=== PATIENT | female | born 1990 | race Caucasian/White ===

== ENCOUNTER → 2018-09-24 | Outpatient (REF) | payer OTHER, MEDICAID ==
[2018-09-24 18:39] LABS: HEMATOCRIT 37.9 % (36.0-47.0); HEMOGLOBIN 12.8 g/dl (12.0-15.5); MEAN CORPUSCULAR HEMOGLOBIN 28.8 pg (27.0-33.0); MEAN CORPUSCULAR HGB CONC 33.8 g/dl (32.0-36.5); MEAN CORPUSCULAR VOLUME 85.2 fl (80.0-96.0); PLATELET COUNT, AUTOMATED 208 10^3/uL (150-450); RED BLOOD COUNT 4.45 10^6/uL (4.00-5.40); WHITE BLOOD COUNT 7.3 10^3/uL (4.0-10.0)
[2018-09-24 19:19] LABS: HCG, SERUM QUANTITATIVE 43674 MIU/ML
[2018-09-25 10:17] LABS: RUBELLA IgG QUALITATIVE EQUIVOCAL (IMMUNE)
[2018-09-25 10:18] LABS: HBsAg Prenatal NEGATIVE (NEGATIVE)
[2018-09-25 10:45] LABS: HEPATITIS C VIRUS ABY INDEX 0.1 INDEX (<0.8)
[2018-09-25 10:46] LABS: HIV 1&2 SCREEN CENTAUR NEGATIVE (NEGATIVE)
== END ==
LOC: M LAB REF 17:12
DX: O36.80X0 Pregnancy with inconclusive fetal viability, not applicable or unspecified (principal); Z3A.00 Weeks of gestation of pregnancy not specified
CPT/HCPCS: 86762

== ENCOUNTER → 2018-10-24 | Outpatient (REF) | payer OTHER, MEDICAID | LOC: M LAB REF 13:35 | DX: Z36.89 Encounter for other specified antenatal screening (principal) | CPT/HCPCS: 87086 ==

== ENCOUNTER 2019-04-21 20:21 | Inpatient (IN) | payer MEDICAID, OTHER ==
[~2019-04-21 20:21] MED LIST: IBUP-1022 PO; TYLE500T78 PO
[2019-04-21] MEDS ORDERED: LACTATED RINGER'S 1000 ML IV STA (20:37)
[2019-04-21] MEDS ORDERED: PENICILLIN G POTASSIUM IV 5 MU in D5W MINI-BAG PLUS 100 ML IV STA (20:37)
[2019-04-21] MEDS ORDERED: BUTORPHANOL 2 MG/ML INJ (J0595) IV ONE (21:00)
[2019-04-21] MEDS ORDERED: PROMETHAZINE INJ 25 MG/ML VIAL (J2550) IM ONE (21:00)
[2019-04-21 21:06] LABS: HEMATOCRIT 28.6 % (36.0-47.0); HEMOGLOBIN 9.4 g/dl (12.0-15.5); MEAN CORPUSCULAR HEMOGLOBIN 25.9 pg (27.0-33.0); MEAN CORPUSCULAR HGB CONC 32.9 g/dl (32.0-36.5); MEAN CORPUSCULAR VOLUME 78.8 fl (80.0-96.0); PLATELET COUNT, AUTOMATED 164 10^3/uL (150-450); RED BLOOD COUNT 3.63 10^6/uL (4.00-5.40); WHITE BLOOD COUNT 11.6 10^3/uL (4.0-10.0)
[2019-04-21] MEDS ORDERED: OXYTOCIN DRIP 30 UNITS in APPROPRIATE DILUENT 1 EA IV SCH (22:02)
--- NOTE | 2019-04-21 22:12 | HPE ---
DATE OF ADMISSION: 04/21/2019 HISTORY OF THE PRESENT ILLNESS: The patient is a 29-year-old female who is a 5, para 3-1-0-4 at 39 weeks and 1 day gestation with an estimated date of delivery ([facility]) of 04/27/2019 based off of a first trimester ultrasound and consistent with her last menstrual period. The patient initiated care in her first trimester with [facility]. Her has been complicated by lack of care as she has not been seen since she was 17 weeks . PAST MEDICAL HISTORY: Varicella as a child. SURGICAL HISTORY: No prior procedures. FAMILY HISTORY: Stroke and a blood clot. SOCIAL HISTORY: Patient is . She denies being a smoker. She denies alcohol abuse or use during her or prior to . She denies a history of drug abuse or use during or prior to . She reports no history of sexually transmitted infections. ALLERGIES: No known drug allergies. CURRENT MEDICATIONS: No current medications. PAST PREGNANCIES: In October 2010 at 36 weeks and 6 days, the patient delivered a live male via vaginal delivery. He weighed 6 pounds 15 ounces. In August 2013 at 40 weeks, she delivered a male via vaginal delivery. He weighed 7 pounds 2 ounces. July 2015 at 40 weeks gestation, she delivered a male, spontaneous vaginal delivery. He weighed 7 pounds 1 ounce. In June 2016, at 40 weeks, she delivered a female via spontaneous vaginal delivery. She weighed 6 pounds 13 ounces. LABS: The patient is B+. Her hemoglobin and hematocrit initially in her first trimester was 12.8 and 37.9 with platelets of 208. She is rubella equivocal. Her VDRL is nonreactive. She does not have a urinary tract infection (UTI). HIV is negative. Hepatitis B surface antigen is negative. Hepatitis C is negative. Gonorrhea and chlamydia are both negative. She did not do a 1-hour glucose test nor a GBS. heart rate is 130 with moderate variability and positive accelerations with occasional variable decelerations with contractions. Contractions are every 2 to 4 minutes. Vital Signs: Blood pressure 129/77, heart rate is 80, temperature is 97.9, and respiratory rate is 18. Vaginal Exam: 5 cm, 80% effaced, -2 station with a moderate amount of bloody show. Cervix is soft, in mid position. Bedside sonogram done for presentation and fetus is cephalic presentation. PHYSICAL ASSESSMENT: General: Alert and oriented times three. Respiratory: Regular rate in between contractions and no use of accessory muscles. Abdomen: Gravid and nontender to touch. Extremities: No edema. No clonus. ASSESSMENT: Intrauterine at 39.1 weeks gestation, active labor, category 2 heart rate tracing, GBS unknown. PLAN: Admit patient to labor and delivery. Saline lock and labs per unit protocol. Out of bed ad renny. Clear liquid diet. GBS prophylaxis due to unknown GBS to be started. Anticipate cervical change and spontaneous vaginal delivery.
[2019-04-21] MEDS ORDERED: ANUSOL HC CREAM 30GM TOP PRN (22:15)
[2019-04-21] MEDS ORDERED: DOCUSATE SODIUM 100 MG CAP PO PRN (22:15)
[2019-04-21] MEDS ORDERED: ACETAMINOPHEN 500 MG TAB PO PRN (22:15)
[2019-04-21] MEDS ORDERED: METHYLERGONOVINE MALEATE 0.2 MG TAB PO PRN (22:15)
[2019-04-21] MEDS ORDERED: IBUPROFEN 600 MG TAB PO PRN (22:15)
[2019-04-21] MEDS ORDERED: medroxyPROGESTERone ACET IM SUSP 150 MG/ML VIAL (J1050) IM ONE (22:15)
[2019-04-21] MEDS ORDERED: DIBUCAINE 1% OINTMENT 30GM TOP PRN (22:15)
[2019-04-21] MEDS ORDERED: ACETAMINOPHEN TAB 650MG DOSE (2X325MG) PO PRN (22:15)
[2019-04-21] MEDS ORDERED: MEASLES,MUMPS,RUBELLA VACCINE INJ (MMR-II) (90707) SC SCH (22:15)
[2019-04-21] MEDS ORDERED: RHOGAM 300 MCG (1500 IU) INJ (J2790) IM SCH (22:15)
--- NOTE | 2019-04-21 22:20 | DN ---
DATE: 04/21/2019 DELIVERY DATE AND TIME: 04/21/2019 at 2124 hours. STATUS: Delivered. Spontaneous vaginal delivery. PROVIDER: Alana Varela CNM, WHNP ANESTHESIA: None. ESTIMATED BLOOD LOSS: 250 mL. FINDINGS: Male, 7 pounds 9 ounces, 3440 grams, scores 9/9, cord around body, lack of care. Patient is a 29-year-old female who is now a 5, para 4-1-0-5 at 39 weeks 1 day gestation who presented to labor and delivery in active labor. She progressed to fully dilated at 2122 hours and pushed to a living male in the right occiput anterior (NANO) position with restitution to right occiput transverse (ROT) at 2124 hours. The anterior shoulder delivered with ease and the corpus immediately followed. The baby was placed on the maternal abdomen, active and crying. The cord was clamped times two after 2 minutes and cut by the patient's mother. A three-vessel cord was noted. The placenta delivered spontaneously and intact at 2128 hours. Uterine hemostasis was achieved via rapid infusion of IV Pitocin and fundal massage. The perineum, vagina, and cervix were inspected and found to be intact. Both mom and baby are in stable condition. All counts of instruments and sponges are correct. Mom plans to breastfeed her , and she plans on naming him Edward.
[2019-04-21 23:40] VITALS: BP 132/63
[2019-04-22] MEDS ORDERED: PENICILLIN G POTASSIUM IV 2.5 MU in APPROPRIATE DILUENT 1 EA IV SCH (00:45)
[2019-04-22 06:00] VITALS: BP 124/66
[2019-04-22] MEDS: PRENATAL VITAMINS CHEWABLE TABLET PO SCH (09:27)
[2019-04-22] MEDS: IBUPROFEN 800 MG TAB PO PRN ×2 (09:28→17:14)
[2019-04-22 18:00] VITALS: BP 116/77
[2019-04-23 06:00] VITALS: BP 123/68
--- NOTE | 2019-04-23 07:48 | NUR ---
Day 2 Status post , uncomplicated Subjective Pain is well controlled. Lochia decreasing and minimal. Voiding spontaneously. Tolerating a regular diet. Ambulating without any assistance. Denies any subjective fever/chills/nausea/vomiting/headache/visual changes/shortness of breath/chest pain. Objective Vitals: Normotensive, normal heart rate, afebrile, adequate urine output. Heart: regular, rate, and rhythm. no murmurs/gallops/rubs Lungs: clear to auscultation bilaterally, no wheezes/crackles/rales/ronchi Abd: soft, nontender, nondistended, uterine fundus is 2cm below umbilicus and firm Ext: no significant edema, nontender, negative Daysi's bilaterally. Assessment/Plan: day 2. Recovering well. Hemodynamically stable, afebrile, good pain control. -Routine care -Discharge to home today -Routine infectious, fever, pain, and bleeding precautions reviewed Dr. Luis Fink D.O., F.A.C.O.G.
[2019-04-23] MEDS: PRENATAL VITAMINS CHEWABLE TABLET PO SCH (08:07)
== END 2019-04-23 17:40 | disposition home or self-care (01) | DRG 560 ==
LOC: M LDI 20:21 → M OBS 23:38
PROVIDERS: ADMIT Advanced Practice Midwife; ATTEND Advanced Practice Midwife
PROC: 10E0XZZ Delivery of Products of Conception, External Approach (ICD-10-PCS; principal; 2019-04-21)
DX: O80 Encounter for full-term uncomplicated delivery (principal); Z37.0 Single live birth; Z3A.39 39 weeks gestation of pregnancy

== ENCOUNTER → 2023-01-23 | Outpatient (REF) | payer BC ==
[2023-01-23 12:03] LABS: BASO # 0.1 10^3/uL (0.0-0.2); BASO % 0.8 % (0.0-1.0); EOS # 0.1 10^3/uL (0.0-0.5); EOS % 2.2 % (0.0-3.0); HEMATOCRIT 43.1 % (36.0-47.0); HEMOGLOBIN 14.3 g/dl (12.0-15.5); LYMPH # 1.6 10^3/uL (1.5-5.0); LYMPH % 26.4 % (24.0-44.0); MEAN CORPUSCULAR HEMOGLOBIN 28.7 pg (27.0-33.0); MEAN CORPUSCULAR HGB CONC 33.2 g/dl (32.0-36.5); MEAN CORPUSCULAR VOLUME 86.5 fl (80.0-96.0); MONO # 0.4 10^3/uL (0.0-0.8); MONO % 7.3 % (2.0-8.0); NEUTROPHILS # 3.8 10^3/uL (1.5-8.5); NEUTROPHILS % 62.8 % (36.0-66.0); PLATELET COUNT, AUTOMATED 200 10^3/uL (150-450); RED BLOOD COUNT 4.98 10^6/uL (4.00-5.40)
[2023-01-23 12:36] LABS: ALBUMIN 4.2 G/DL (3.2-5.2); ALKALINE PHOSPHATASE 67 U/L (46-116); ALT/SGPT 16 U/L (7.0-40); AST/SGOT 15 U/L (<34); BILIRUBIN,TOTAL 0.8 MG/DL (0.3-1.2); BLOOD UREA NITROGEN 11 MG/DL (9-23); CALCIUM LEVEL 8.8 MG/DL (8.5-10.1); CARBON DIOXIDE LEVEL 25 MMOL/L (20-31); CHLORIDE LEVEL 106 MMOL/L (98-107); CHOLESTEROL LEVEL 105 MG/DL (<200); CHOLESTEROL RISK RATIO 2.67 (<5); CREATININE FOR GFR 0.74 MG/DL (0.55-1.30); FREE T4 1.06 NG/DL (0.89-1.76); GLOMERULAR FILTRATION RATE > 60.0 (>60); GLUCOSE, FASTING 85 MG/DL (60-100); HDL CHOLESTEROL 39.3 MG/DL (>40); LDL CHOLESTEROL 54.5 MG/DL (<100); NON-HDL-C 65.7 MG/DL; POTASSIUM SERUM 4.7 MMOL/L (3.5-5.1); SODIUM LEVEL 136 MMOL/L (136-145); THYROID STIMULATING HORMONE 1.626 uIU/ML (0.55-4.78); TOTAL PROTEIN 7.4 G/DL (5.7-8.2); TRIGLYCERIDES LEVEL 56 MG/DL (<150)
[2023-01-23 13:02] LABS: HIV 1&2 SCREEN CENTAUR NEGATIVE (NEGATIVE)
[2023-01-23 13:57] LABS: HEMOGLOBIN A1c 5.1 % (4.0-6.0)
== END ==
LOC: M LAB REF 11:18
PROVIDERS: ATTEND Nurse Practitioner Family
DX: Z11.4 Encounter for screening for human immunodeficiency virus [HIV] (principal); Z11.59 Encounter for screening for other viral diseases; Z13.228 Encounter for screening for other metabolic disorders

== ENCOUNTER → 2023-09-19 | Outpatient (REF) | payer BC ==
[2023-09-19 17:27] LABS: BASO # 0.1 10^3/uL (0.0-0.2); BASO % 0.7 % (0.0-1.0); EOS # 0.2 10^3/uL (0.0-0.5); EOS % 3.1 % (0.0-3.0); HEMATOCRIT 41.1 % (36.0-47.0); HEMOGLOBIN 13.9 g/dl (12.0-15.5); LYMPH # 2.1 10^3/uL (1.5-5.0); LYMPH % 30.5 % (24.0-44.0); MEAN CORPUSCULAR HEMOGLOBIN 29.3 pg (27.0-33.0); MEAN CORPUSCULAR HGB CONC 33.8 g/dl (32.0-36.5); MEAN CORPUSCULAR VOLUME 86.7 fl (80.0-96.0); MONO # 0.7 10^3/uL (0.0-0.8); MONO % 10.6 % (2.0-8.0); NEUTROPHILS # 3.8 10^3/uL (1.5-8.5); NEUTROPHILS % 54.8 % (36.0-66.0); PLATELET COUNT, AUTOMATED 216 10^3/uL (150-450); RED BLOOD COUNT 4.74 10^6/uL (4.00-5.40); WHITE BLOOD COUNT 6.9 10^3/uL (4.0-10.0)
[2023-09-19 17:40] LABS: HEMOGLOBIN A1c 4.9 % (4.0-6.0)
[2023-09-19 17:59] LABS: ALBUMIN 4.1 G/DL (3.2-5.2); ALKALINE PHOSPHATASE 71 U/L (46-116); ALT/SGPT 16 U/L (7.0-40); AST/SGOT 9 U/L (<34); BILIRUBIN,TOTAL 0.6 MG/DL (0.3-1.2); BLOOD UREA NITROGEN 12 MG/DL (9-23); CALCIUM LEVEL 9.4 MG/DL (8.5-10.1); CARBON DIOXIDE LEVEL 28 MMOL/L (20-31); CHLORIDE LEVEL 102 MMOL/L (98-107); CHOLESTEROL LEVEL 153 MG/DL (<200); CHOLESTEROL RISK RATIO 3.17 (<5); CREATININE FOR GFR 0.64 MG/DL (0.55-1.30); GLOMERULAR FILTRATION RATE > 60.0 (>60); GLUCOSE, FASTING 98 MG/DL (60-100); HDL CHOLESTEROL 48.2 MG/DL (>40); LDL CHOLESTEROL 85.6 MG/DL (<100); MAGNESIUM LEVEL 1.9 MG/DL (1.8-2.4); NON-HDL-C 104.8 MG/DL; POTASSIUM SERUM 4.1 MMOL/L (3.5-5.1); SODIUM LEVEL 139 MMOL/L (136-145); TOTAL 25(OH) VITAMIN D 28.1 NG/ML (20.0-100.0); TOTAL PROTEIN 7.5 G/DL (5.7-8.2); TRIGLYCERIDES LEVEL 96 MG/DL (<150)
== END ==
LOC: M LAB REF 16:41
PROVIDERS: ATTEND Nurse Practitioner Family
DX: E66.9 Obesity, unspecified (principal)

== ENCOUNTER → 2025-09-16 | Outpatient (REF) | payer BC ==
[~2025-09-16] MED LIST changes: -IBUP-1022 PO; +IBUP600T42 PO
[2025-09-16 14:17] LABS: ALT/SGPT 25 U/L (7.0-40); AST/SGOT 22 U/L (<34); CALCIUM LEVEL 8.9 MG/DL (8.5-10.1); CARBON DIOXIDE LEVEL 30 MMOL/L (20-31); CHLORIDE LEVEL 103 MMOL/L (98-107); CHOLESTEROL LEVEL 152 MG/DL (<200); CHOLESTEROL RISK RATIO 2.77 (<5); CREATININE FOR GFR 0.72 MG/DL (0.55-1.30); GLOMERULAR FILTRATION RATE > 90.0 (>60); LDL CHOLESTEROL 83.5 MG/DL (<100); NON-HDL-C 97.3 MG/DL; POTASSIUM SERUM 4.1 MMOL/L (3.5-5.1); SODIUM LEVEL 141 MMOL/L (136-145); TRIGLYCERIDES LEVEL 69 MG/DL (<150)
[2025-09-16 14:19] LABS: TOTAL 25(OH) VITAMIN D 22.8 NG/ML (20.0-100.0)
[2025-09-16 14:40] LABS: ESTIMATED AVERAGE GLUCOSE 94.0 MG/DL (60-110)
== END ==
LOC: M LAB REF 12:37
PROVIDERS: ATTEND Student in an Organized Health Care Education/Training Program
DX: E55.9 Vitamin D deficiency, unspecified (principal); Z68.31 Body mass index [BMI] 31.0-31.9, adult